=== PATIENT | male | born 1985 | race Caucasian/White ===

== ENCOUNTER 2025-04-13 11:39 | Emergency (ER) | payer SELFPAY | END 2025-04-13 12:45 | disposition home or self-care (01) | LOC: JD.ED 11:39 | DX: S93.402A Sprain of unspecified ligament of left ankle, initial encounter (principal); W23.1XXA Caught, crushed, jammed, or pinched between stationary objects, initial encounter; Y99.0 Civilian activity done for income or pay | CPT/HCPCS: 73610-26-LT; 73610-LT; 99283 ==